=== PATIENT | female | born 1995 | race Caucasian/White ===

== ENCOUNTER 2020-03-17 20:18 | Emergency (ER) | payer MEDICAID, SELFPAY ==
[2020-03-17 23:32] VITALS: BP 96/58; PULSE 84; RESP 18; TEMP 36.9; O2SAT 98; BMI 19.3
--- NOTE | 2020-03-17 23:44 | ED.WEAKNESS ---
HPI - Weakness General Chief complaint: Weakness Stated complaint: GENERAL PAIN Time Seen by Provider: 03/17/20 23:28 Source: patient Mode of arrival: ambulatory Limitations: no limitations History of Present Illness HPI Narrative: patient with history of asthma which is usually mild for last 1 week patient been feeling short of breath occasional cough weakness body aches nausea diffuse abdominal pain feels exhausted denies any contact with AMANDA watersly Complaint: generalized weakness Related Data Allergies Allergy/AdvReac Type Severity Reaction Status Date / Time peanut [PEANUT] Allergy Severe ANAPHYLAXIS Verified 03/17/20 23:31 Peanut (Diagnostic) Allergy Unknown anaphylactic Uncoded 02/18/17 00:00 shock Review of Systems Review of Systems: REVIEW OF SYSTEMS: Pertinent positives and negatives are stated above in the history. GEN: no fevers, chills, fatigue++ HEENT: no nasal congestion, sore throat, ear pain NEURO: no headache, dizziness, focal weakness PULM: no cough, CV: no chest pain, palpitations, LE edema ABD: no abdominal pain, nausea, vomiting, diarrhea : no dysuria, urgency, frequency SKIN: no rash ROS otherwise negative x 10 PMFSH Past Medical History Medical History Asthma Social History Social History Alcohol intake: never Smoked in Last 30 Days: No Use of substances other than those prescribed or required for medical reasons: No Advance Directives: No Advance Directives Information Provided: No Physical Exam Vital Signs: Vital Signs: Vital Signs Temp Pulse Resp BP Pulse Ox 03/18/20 01:23 98.2 F 92 18 98/47 L 99 03/17/20 23:32 98.5 F 84 18 96/58 L 98 Body Mass Index 19.3 VITAL SIGNS: Reviewed. positive orthostatics with dizziness on standing GENERAL: Well developed, well nourished, in no acute distress. HEAD: Normocephalic/atraumatic, EYES: PERRLA No pallor/icterus noted EARS: Ext canals without abnormality NOSE: Nares patent bilateral OROPHARYNX: Oral mucosa moist no oral lesions NECK: Supple, no adenopathy LUNGS: Normal breath sounds. No adventitious sounds or accessory muscle use CARDIOVASCULAR: Regular rate and rhythm without noted murmurs, no JVD or lower extremity edema. ABDOMEN: Soft, non-tender, non-distended with bowel sounds. No rigidity. No guarding. No palpable masses or hernias noted MUSCULOSKELETAL: No tenderness, deformities, EXTREMITIES: No cyanosis or edema. SKIN: no rashes, ulcerations, jaundice, pallor, or petechiae NEUROLOGIC: Alert and oriented x 3. Strength and sensation to light touch were grossly intact Course Reevaluation(s) Reevaluation #1: patient feel very anxious with history of depression anxiety still complaining of complaints whole body aches so far workup is negative will give her Ativan IV 1 mg for anxiety and stress patient will be getting 2 L of normal saline. Time: 00:50 Reevaluation #2: COVID test is negative patient denies any cough already received 2 L of IV fluids feeling much better will discharge her home Time: 02:01 MDM - Weakness Lab Data Result diagrams: 03/17/20 23:56 03/17/20 23:56 Labs: Lab Results 03/17/20 03/17/20 03/17/20 Range/Units 23:56 23:56 23:56 WBC 8.2 (4.8-10.8) X10*3/uL RBC 4.08 L (4.20-5.50) X10*6/uL Hgb 12.8 (12.0-16.0) g/dl Hct 38.2 (37-47) % MCV 93.6 (80-98) fL MCH 31.4 (27.0-33.0) pg MCHC 33.5 (31.0-35.0) g/dl RDW 12.5 (11.0-16.0) % Plt Count 298 (160-400) X10*3/uL MPV 9.4 (9.4-12.3) fL Immature Gran % (Auto) 0.2 (0.0-0.4) % Neut % (Auto) 64.9 (45-73) % Lymph % (Auto) 27.5 (20-40) % [place] % (Auto) 6.3 (2-11) % Eos % (Auto) 0.7 (0-4) % Baso % (Auto) 0.4 (0-2) % Lymph # (Auto) 2.3 (1.2-4.9) X10*3/uL [place] # (Auto) 0.5 (0.1-1.2) X10*3/uL Eos # (Auto) 0.1 (0.0-0.4) X10*3/uL Baso # (Auto) 0.0 (0.0-0.2) X10*3/uL Abs Immat Gran (auto) 0.02 (0.00-0.03) X10*3/uL Absolute Neuts (auto) 5.3 (2.0-8.3) X10*3/uL Absolute Nucleated RBC 0.000 (0.0-0.012) X10*3/uL Nucleated RBC % (auto) 0.0 (0.0-0.2) /100WBC Sodium 138 (135-145) mmol/L Potassium 3.7 (3.3-5.1) mmol/l Chloride 108 (96-108) mmol/L Carbon Dioxide 22 (22-29) mmol/L Anion Gap 12 (12-20) BUN 13 (9-16) mg/dL Creatinine 0.83 (0.5-1.4) mg/dL Estim Creat Clear Calc 89.8 Estimated GFR > 60 Random Glucose 111 (60-115) mg/dL Calcium 8.2 L (8.4-10.2) mg/dL Total Bilirubin 0.7 (0.0-1.0) mg/dL Direct Bilirubin 0.3 (0.0-0.5) mg/dL AST 13 (5-31) U/L ALT 8 (0-31) U/L Alkaline Phosphatase 61 (39-117) U/L Troponin I High Sens (<3.5-17.0) ng/L Total Protein 6.9 (6.5-8.0) g/dL Albumin 4.3 (3.5-5.0) g/dL Lipase 19 (8-78) U/L Urine Color Urine Appearance Urine pH (5.0-8.0) Ur Specific [place] (1.005-1.025) Urine Protein (NEG-TRACE) MG/DL Urine Glucose (UA) (NEG) MG/DL Urine Ketones (NEG) MG/DL Urine Blood (NEG) Urine Nitrite (NEG) Ur Leukocyte Esterase (NEG) Urine RBC (0) /HPF Urine WBC (0-4) /HPF Ur Squamous Epith Cells /LPF Uric Acid Crystals /LPF Urine Bacteria /LPF Urine Mucus /LPF Urine Test NEGATIVE (NEGATIVE) Coronavirus (PCR) (Negative) 03/17/20 03/18/20 03/18/20 Range/Units 23:56 00:05 00:05 WBC (4.8-10.8) X10*3/uL RBC (4.20-5.50) X10*6/uL Hgb (12.0-16.0) g/dl Hct (37-47) % MCV (80-98) fL MCH (27.0-33.0) pg MCHC (31.0-35.0) g/dl RDW (11.0-16.0) % Plt Count (160-400) X10*3/uL MPV (9.4-12.3) fL Immature Gran % (Auto) (0.0-0.4) % Neut % (Auto) (45-73) % Lymph % (Auto) (20-40) % [place] % (Auto) (2-11) % Eos % (Auto) (0-4) % Baso % (Auto) (0-2) % Lymph # (Auto) (1.2-4.9) X10*3/uL [place] # (Auto) (0.1-1.2) X10*3/uL Eos # (Auto) (0.0-0.4) X10*3/uL Baso # (Auto) (0.0-0.2) X10*3/uL Abs Immat Gran (auto) (0.00-0.03) X10*3/uL Absolute Neuts (auto) (2.0-8.3) X10*3/uL Absolute Nucleated RBC (0.0-0.012) X10*3/uL Nucleated RBC % (auto) (0.0-0.2) /100WBC Sodium (135-145) mmol/L Potassium (3.3-5.1) mmol/l Chloride (96-108) mmol/L Carbon Dioxide (22-29) mmol/L Anion Gap (12-20) BUN (9-16) mg/dL Creatinine (0.5-1.4) mg/dL Estim Creat Clear Calc Estimated GFR Random Glucose (60-115) mg/dL Calcium (8.4-10.2) mg/dL Total Bilirubin (0.0-1.0) mg/dL Direct Bilirubin (0.0-0.5) mg/dL AST (5-31) U/L ALT (0-31) U/L Alkaline Phosphatase (39-117) U/L Troponin I High Sens < 3.5 (<3.5-17.0) ng/L Total Protein (6.5-8.0) g/dL Albumin (3.5-5.0) g/dL Lipase (8-78) U/L Urine Color YELLOW Urine Appearance CLEAR Urine pH 6.0 (5.0-8.0) Ur Specific [place] 1.025 (1.005-1.025) Urine Protein NEG (NEG-TRACE) MG/DL Urine Glucose (UA) NEG (NEG) MG/DL Urine Ketones NEG (NEG) MG/DL Urine Blood TRACE (NEG) Urine Nitrite NEG (NEG) Ur Leukocyte Esterase NEG (NEG) Urine RBC 1-4 (0) /HPF Urine WBC 0 (0-4) /HPF Ur Squamous Epith Cells TRACE /LPF Uric Acid Crystals TRACE /LPF Urine Bacteria TRACE /LPF Urine Mucus 3+ /LPF Urine Test (NEGATIVE) Coronavirus (PCR) NEGATIVE (Negative) ECG Data Attestation: I personally reviewed and interpreted this ECG as follows: Interpretation: normal sinus rhythm with heart rate 75 normal intervals normal axis no acute ST T wave changes impression normal EKG Discharge Plan Discharge Clinical Impression: Weakness Patient Disposition: Home, Self-Care Instructions: Weakness (ED) Additional Instructions: drink plenty of fluids and follow-up with primary care doctor, continue medication for anxiety and depression
[2020-03-17] MEDS: 0.9 % Sodium Chloride 1,000 ML 999 ML IVCONT (23:51)
[2020-03-17] MEDS: ondansetron HCL 4 MG/2 ML VIAL IVPUSH (23:51)
--- NOTE | 2020-03-17 23:51 | XR_ITS ---
EXAMINATION: XR CHEST CLINICAL INFORMATION: Shortness of breath COMPARISON: None TECHNIQUE: Frontal view of the chest was obtained. FINDINGS: The lungs are well expanded. Hazy opacity at the right lung base. No pleural effusion or pneumothorax. The cardiomediastinal silhouette is within normal limits. No acute osseous abnormality. XR/XR chest 1V IMPRESSION: Hazy right basilar opacity which could represent atelectasis or pneumonia.
--- NOTE | 2020-03-17 23:52 | ECG_ITS ---
Test Reason : CHEST PAIN Blood Pressure : / mmHG Vent. Rate : 075 BPM Atrial Rate : 075 BPM P-R Int : 136 ms QRS Dur : 080 ms QT Int : 404 ms P-R-T Axes : 054 079 061 degrees QTc Int : 451 ms Normal sinus rhythm with sinus arrhythmia Normal ECG When compared with ECG of 12-DEC-2012 20:11, No significant change was found Referred By: Brayden Dow Electronically Signed By:XENA HERNÁNDEZ MD
[2020-03-18 00:05] LABS: Basophils Percent Auto 0.4 % (0-2); Eosinophils Absolute Auto 0.1 X10*3/uL (0.0-0.4); Eosinophils Percent Auto 0.7 % (0-4); Hematocrit 38.2 % (37-47); Hemoglobin 12.8 g/dl (12.0-16.0); Imm Gran Abs Auto 0.02 X10*3/uL (0.00-0.03); Imm Gran Pct Auto 0.2 % (0.0-0.4); Lymphocytes Absolute Auto 2.3 X10*3/uL (1.2-4.9); Lymphocytes Percent Auto 27.5 % (20-40); MANUAL DIFF FLAG NO; Mean Corpuscular HGB Conc 33.5 g/dl (31.0-35.0); Mean Corpuscular Hemoglobin 31.4 pg (27.0-33.0); Mean Corpuscular Volume 93.6 fL (80-98); Mean Platelet Volume 9.4 fL (9.4-12.3); Monocytes Absolute Auto 0.5 X10*3/uL (0.1-1.2); Monocytes Percent Auto 6.3 % (2-11); Neutrophils Absolute Auto 5.3 X10*3/uL (2.0-8.3); Neutrophils Percent Auto 64.9 % (45-73); Platelet Count 298 X10*3/uL (160-400); Red Blood Count 4.08 X10*6/uL (4.20-5.50); Red Cell Distribution Width 12.5 % (11.0-16.0); White Blood Count 8.2 X10*3/uL (4.8-10.8)
[2020-03-18 00:12] LABS: Glucose Urine UA NEG (NEG); Leukocyte Esterase Urine NEG (NEG); Nitrite Urine NEG (NEG); Specific Gravity - Urine 1.025 (1.005-1.025); Urine Blood TRACE (NEG); Urine Ketones NEG (NEG); Urine Protein NEG (NEG-TRACE)
[2020-03-18 00:17] LABS: Appearance Urine CLEAR; Color Urine YELLOW
[2020-03-18 00:27] LABS: Alanine Aminotransferase 8 U/L (0-31); Albumin Level 4.3 g/dL (3.5-5.0); Alkaline Phosphatase 61 U/L (39-117); Anion Gap 12 (12-20); Aspartate Amino Transferase 13 U/L (5-31); Bilirubin Direct 0.3 mg/dL (0.0-0.5); Bilirubin Total 0.7 mg/dL (0.0-1.0); Blood Urea Nitrogen 13 mg/dL (9-16); Calcium 8.2 mg/dL (8.4-10.2); Carbon Dioxide 22 mmol/L (22-29); Chloride 108 mmol/L (96-108); Creatinine Clr Calc Pharmacy 89.8; Estimated Glomerular Filt Rate > 60; Glucose Random 111 mg/dL (60-115); Lipase 19 U/L (8-78); Potassium 3.7 mmol/l (3.3-5.1); Sodium 138 mmol/L (135-145); Total Protein 6.9 g/dL (6.5-8.0)
--- NOTE | 2020-03-18 00:41 | PC.NURSE ---
pt arrives morfin x 3 with equal and non labored rr. pt skin wpd. appears pale. pt speaking in clear and full sentences. pt states x 1 week worsening fatigue, weakness, nausea and chest pain. pt lined and labbed. ortho positive, urine sent and collected. 1 l ns hung, chest x ray complete. vitals wnl, afebrile. rapid covid done.
[2020-03-18 00:43] LABS: Troponin-I High Sensitivity < 3.5 ng/L (<3.5-17.0)
--- NOTE | 2020-03-18 00:49 | PC.NURSE ---
pt very anxious, requesting something for anxiety at this time. md aware
[2020-03-18] MEDS: LORazepam 2 MG/ML VIAL 1 MG IVPUSH (00:53)
[2020-03-18] MEDS: 0.9 % Sodium Chloride 1,000 ML 999 ML IVCONT (00:53)
--- NOTE | 2020-03-18 01:04 | PC.NURSE ---
pt states that although she is feeling weak and lethargic she is also homeless. pt medicated with ativan. will wait for covid results then re evaluate. pt in nad at this time.
[2020-03-18 01:21] LABS: Bacteria Urine TRACE /LPF; Mucus Urine 3+ /LPF; Squamous Epithelial Cell Urine TRACE /LPF; Uric Acid Crystals Urine TRACE /LPF; WBC Urine 0 /HPF (0-4)
[2020-03-18 01:22] LABS: UPreg QC Valid YES; Urine Pregnancy NEGATIVE (NEGATIVE)
[2020-03-18 01:23] VITALS: BP 98/47; PULSE 92; RESP 18; TEMP 36.8; O2SAT 99
--- NOTE | 2020-03-18 01:24 | PC.NURSE ---
given sandiwch and drink per request
[2020-03-18 01:50] LABS: SARS COV2 PCR INHOUSE NEGATIVE (Negative)
[2020-03-18 02:08] LABS: D Dimer < 200 NG/ML
[2020-03-18] MEDS: Ketorolac Tromethamine 30 MG/ML VIAL IVPUSH (02:30)
[2020-03-18 03:57] VITALS: RESP 18
--- NOTE | 2020-03-18 06:18 | PC.NURSE ---
this rn went into patients room after we allowed her to sleep through the night due to her being homeless. pt was given information for homeless shelters, food to go. told her that she is more than welcome to use the phone in the waiting room gave her a transportation pass for shuttle and told her she would need to go to main entrance. pt then started being rude to this rn because i would not let her accompany a bed any longer. security called to bedside. pt still refusing to leave.
--- NOTE | 2020-03-18 06:36 | PC.NURSE ---
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
--- NOTE | 2020-03-18 10:01 | MHC.CM.ED ---
Received notification from Fiorella in registration, that patient is requesting case management to call [facility] to get her a bed. Attempted to call Komal at [facility]. Left a message requesting a return telephone call. Continue to monitor for d/c needs.
== END 2020-03-18 06:37 | disposition home or self-care (01) ==
PROVIDERS: Emergency Provider Internal Medicine; PCP Internal Medicine
DX: J45.909 Unspecified asthma, uncomplicated (principal); R05 Cough; R10.9 Unspecified abdominal pain; R53.1 Weakness; Z11.59 Encounter for screening for other viral diseases
CPT/HCPCS: 36415; 71045; 80048; 80076; 81001; 81025; 83690; 84484; 85025; 85379; 93005; 96361; 96374; 96375; 99284; J1885; J2060; J2405; U0003

== ENCOUNTER 2020-03-29 17:54 | Emergency (ER) | payer MEDICAID, SELFPAY ==
--- NOTE | 2020-03-29 | ECG_ITS ---
Test Reason : CP Blood Pressure : / mmHG Vent. Rate : 087 BPM Atrial Rate : 087 BPM P-R Int : 138 ms QRS Dur : 072 ms QT Int : 374 ms P-R-T Axes : 064 081 065 degrees QTc Int : 450 ms Normal sinus rhythm with sinus arrhythmia Normal ECG No significant changes seen Referred By: Generic ED Physician Electronically Signed By:XENA HERNÁNDEZ MD
[2020-03-29 19:07] VITALS: BP 99/57; PULSE 74; RESP 16; TEMP 36.6; O2SAT 98; BMI 20.1
--- NOTE | 2020-03-29 19:58 | XR_ITS ---
EXAMINATION: XR CHEST CLINICAL INFORMATION: Shortness of breath COMPARISON: None TECHNIQUE: 2 views of the chest were obtained. FINDINGS: The heart and pulmonary vessels appear normal. At the left lung base, there is some minimal streaky density seen with some minimal obscuration left hemidiaphragm new when compared to the prior study. The previously seen hazy opacity at the right lung base has cleared in the interim. XR/XR chest 2V IMPRESSION: Clearing of right basilar atelectasis with question of new tiny area of opacity at the left lung base.
[2020-03-29 20:00] VITALS: BP 98/53; PULSE 60; PULSE 63; RESP 18; TEMP 36.9; O2SAT 99
--- NOTE | 2020-03-29 20:00 | ED_ITS ---
HPI - General Adult General Chief complaint: General Medical Stated complaint: sob Time Seen by Provider: 03/29/20 19:58 Source: patient Mode of arrival: ambulatory Limitations: no limitations History of Present Illness HPI narrative: Generalized weakness, chest tightness, coughing, patient had a recent history of pneumonia just finish 5 days course of Z-Caleb, patient feels like she is still having the pneumonia. Patient has been self isolated and quarantine declined risk of COVID infection. Patient was seen on 03/17 and was diagnosed with pneumonia, patient was negative for COVID Related Data Home Medications Medication Instructions Recorded Confirmed albuterol 90 mcg INHALATION Q4H PRN 03/28/20 03/29/20 fluticasone propion-salmeterol 1 inh INHALATION BID 03/28/20 03/28/20 [Wixela Inhub] hydroxyzine HCl 25 mg PO TID PRN 03/28/20 03/28/20 montelukast [Singulair] 10 mg PO DAILY 03/28/20 03/28/20 sertraline 100 mg PO DAILY 03/28/20 03/28/20 Allergies Allergy/AdvReac Type Severity Reaction Status Date / Time peanut [PEANUT] Allergy Severe ANAPHYLAXIS Verified 03/17/20 23:31 Penicillins Allergy Hives Verified 03/29/20 19:14 Peanut (Diagnostic) Allergy Unknown anaphylactic Uncoded 02/18/17 00:00 shock Review of Systems Review of Systems: All other systems are reviewed and are negative Constitutional: Reports as per HPI and Reports no additional constitutional complaints Eyes: Reports as per HPI and Reports no additional eye complaints Reports system reviewed and no additional complaints, except as documented Cardiovascular: Reports as per HPI and Reports no additional cardiovascular complaints Respiratory: Reports as per HPI and Reports no additional respiratory complaints Gastrointestinal: Reports as per HPI and Reports no additional gastrointestinal complaints Genitourinary: Reports no additional female genitourinary complaints Musculoskeletal: Reports no additional musculoskeletal complaints Skin/Breast: Reports system reviewed and no additional complaints, except as docu Psychiatric: Reports no additional psychiatric complaints Endocrine: Reports no additional endocrine complaints Hematologic/Lymphatic: Reports no additional hematologic/lymphatic complaints Allergic/Immunologic: Reports no additional allergic/immunologic complaints Reports system reviewed and no additional complaints, except as documented and Reports Abnormal speech present [facility] Past Medical History Medical History Asthma Pneumonia Social History Social History Household Members: Family and Children Alcohol intake: never Smoking Status: Unknown if ever smoked Smoked in Last 30 Days: No Use of substances other than those prescribed or required for medical reasons: Yes Substance Use Type: Marijuana Substance Use Frequency: Daily Last Used Substance: Hours (ago) Advance Directives: No Advance Directives Information Provided: Yes Physical Exam Vital Signs: Vital Signs: Last Vital Signs Temp 98.5 F 03/29/20 20:00 Pulse 60 03/29/20 20:00 Resp 18 03/29/20 20:00 BP 98/53 L 03/29/20 20:00 Pulse Ox 99 03/29/20 20:00 Body Mass Index 20.1 Vital signs have been reviewed as normal and appeared to be correct. Blood pr essure normal. Heart rate normal. Respiration rate normal. Temperature normal. Oxygen saturation normal. Appearance: Alert. Oriented X3. No acute distress. Head: Normal external exam. Normocephalic. Atraumatic. No Tripathi signs noted. No raccoon eyes noted Eyes: PERRLA. EOMI. Conjunctiva and sclera normal. Eyelids normal. ENT: EAC normal. TM's Normal. Pharynx normal. Uvula midline. Moist mucous membranes. No trismus noted. No drooling noted. No muffled voice noted. Neck: Normal inspection. Neck supple. FROM. No adenopathy. Thyroid Normal. No meningeal signs. No neck mass noted. CVS: Normal heart rate and rhythm. Heart sound normal. No murmurs noted. Pulses normal throughout. Respiratory: No respiratory distress. Painless inspiration. Breath sounds nor mal. No wheezes/rales/rhonchi noted. Chest nontender. No accessory muscle usage noted or decreased air movement noted. Abdomen: Soft and nontender. Bowel sounds normal in all 4 quadrants. No distent ion noted. No organomegaly noted. No visible injury noted. Back: No CVA tenderness. Full range of motion noted. Skin: Skin warm and dry. Normal skin color. Normal skin turgor. No rashes/lesions/lacerations noted. Extremities: No lower extremity edema. Extremities exhibit normal range of mot ion. Extremities nontender. Neuro: Oriented X 3. No motor deficit. No sensory deficit. Reflexes normal. Medical Decision Making MDM Narrative Medical decision making narrative: Assessment and plan. 24-year-old female presented with similar symptoms that she presented 10 days ago, patient appears anxious and most of her symptoms related to her anxiety, exam fairly normal, patient had chest x-ray that showed cleared of the subtle finding on the previous x-ray, patient been in the emergency room for few hours, stable vital sign, patient also have unremarkable labs. Patient was instructed to follow-up with her PCP. Patient is still concerned about her symptoms, patient appear very disappointed I attempt all effort to reassure the patient patient still unhappy. Will not start antibiotic if not indicated. Patient is showing any acute psychological problem, patient appeared very organized no hallucination, patient was asked if any SI or HI she denied. Lab Data Lab results reviewed: Yes I reviewed the patient's lab results. Result diagrams: 03/29/20 20:10 03/29/20 20:10 Labs: Lab Results 03/29/20 03/29/20 03/29/20 Range/Units 20:10 20:10 20:42 WBC 8.4 (4.8-10.8) X10*3/uL RBC 3.84 L (4.20-5.50) X10*6/uL Hgb 11.9 L (12.0-16.0) g/dl Hct 36.2 L (37-47) % MCV 94.3 (80-98) fL MCH 31.0 (27.0-33.0) pg MCHC 32.9 (31.0-35.0) g/dl RDW 12.6 (11.0-16.0) % Plt Count 287 (160-400) X10*3/uL MPV 9.5 (9.4-12.3) fL Immature Gran % (Auto) 0.4 (0.0-0.4) % Neut % (Auto) 59.5 (45-73) % Lymph % (Auto) 31.5 (20-40) % Dougherty % (Auto) 6.3 (2-11) % Eos % (Auto) 1.8 (0-4) % Baso % (Auto) 0.5 (0-2) % Lymph # (Auto) 2.6 (1.2-4.9) X10*3/uL Dougherty # (Auto) 0.5 (0.1-1.2) X10*3/uL Eos # (Auto) 0.2 (0.0-0.4) X10*3/uL Baso # (Auto) 0.0 (0.0-0.2) X10*3/uL Abs Immat Gran (auto) 0.03 (0.00-0.03) X10*3/uL Absolute Neuts (auto) 5.0 (2.0-8.3) X10*3/uL Absolute Nucleated RBC 0.000 (0.0-0.012) X10*3/uL Nucleated RBC % (auto) 0.0 (0.0-0.2) /100WBC Sodium 139 (135-145) mmol/L Potassium 4.1 (3.3-5.1) mmol/l Chloride 109 H (96-108) mmol/L Carbon Dioxide 21 L (22-29) mmol/L Anion Gap 13 (12-20) BUN 22 H D (9-16) mg/dL Creatinine 0.75 (0.5-1.4) mg/dL Estim Creat Clear Calc 103.4 Estimated GFR > 60 Random Glucose 89 (60-115) mg/dL Calcium 9.0 D (8.4-10.2) mg/dL Urine Color YELLOW Urine Appearance CLEAR Urine pH 6.0 (5.0-8.0) Ur Specific Rosie >= 1.030 H (1.005-1.025) Urine Protein NEG (NEG-TRACE) MG/DL Urine Glucose (UA) NEG (NEG) MG/DL Urine Ketones NEG (NEG) MG/DL Urine Blood NEG (NEG) Urine Nitrite NEG (NEG) Ur Leukocyte Esterase NEG (NEG) Urine Test NEGATIVE (NEGATIVE) Imaging Data Chest x-ray: Radiologist's impression: Clearing of right basilar atelectasis with question of new tiny area of opacity at the left lung base Discharge Plan Discharge Clinical Impression: Encounter for medical screening examination, Normal exam Patient Disposition: Home, Self-Care Instructions: Normal Exam (ED) Prescriptions: No Action fluticasone propion-salmeterol [Wixela Inhub] 250-50 mcg/dose Blister With Device 1 inh INHALATION BID RF: 0 sertraline 100 mg Tablet 100 mg PO DAILY RF: 0 montelukast [Singulair] 10 mg Tablet 10 mg PO DAILY RF: 0 hydroxyzine HCl 25 mg Tablet 25 mg PO TID PRN (Reason: Anxiety) RF: 0 albuterol 90 mcg/actuation Aerosol 90 mcg INHALATION Q4H PRN (Reason: Shortness Of Breath) RF: 0 Referrals: Sandy Handley MD [Primary Care Provider] - 2 days
[2020-03-29 20:15] LABS: MANUAL DIFF FLAG NO
[2020-03-29 20:20] LABS: Basophils Percent Auto 0.5 % (0-2); Eosinophils Absolute Auto 0.2 X10*3/uL (0.0-0.4); Eosinophils Percent Auto 1.8 % (0-4); Hematocrit 36.2 % (37-47); Hemoglobin 11.9 g/dl (12.0-16.0); Imm Gran Abs Auto 0.03 X10*3/uL (0.00-0.03); Imm Gran Pct Auto 0.4 % (0.0-0.4); Lymphocytes Absolute Auto 2.6 X10*3/uL (1.2-4.9); Lymphocytes Percent Auto 31.5 % (20-40); Mean Corpuscular HGB Conc 32.9 g/dl (31.0-35.0); Mean Corpuscular Volume 94.3 fL (80-98); Mean Platelet Volume 9.5 fL (9.4-12.3); Monocytes Absolute Auto 0.5 X10*3/uL (0.1-1.2); Monocytes Percent Auto 6.3 % (2-11); Neutrophils Percent Auto 59.5 % (45-73); Platelet Count 287 X10*3/uL (160-400); Red Blood Count 3.84 X10*6/uL (4.20-5.50); Red Cell Distribution Width 12.6 % (11.0-16.0); White Blood Count 8.4 X10*3/uL (4.8-10.8)
[2020-03-29 20:42] LABS: Anion Gap 13 (12-20); Blood Urea Nitrogen 22 mg/dL (9-16); Carbon Dioxide 21 mmol/L (22-29); Chloride 109 mmol/L (96-108); Creatinine Clr Calc Pharmacy 103.4; Estimated Glomerular Filt Rate > 60; Glucose Random 89 mg/dL (60-115); Potassium 4.1 mmol/l (3.3-5.1); Sodium 139 mmol/L (135-145)
[2020-03-29 21:05] LABS: Glucose Urine UA NEG (NEG); Leukocyte Esterase Urine NEG (NEG); Nitrite Urine NEG (NEG); Specific Gravity - Urine >= 1.030 (1.005-1.025); Urine Blood NEG (NEG); Urine Ketones NEG (NEG); Urine Protein NEG (NEG-TRACE)
[2020-03-29 21:08] LABS: Appearance Urine CLEAR; Color Urine YELLOW
[2020-03-29 21:11] LABS: UPreg QC Valid YES; Urine Pregnancy NEGATIVE (NEGATIVE)
--- NOTE | 2020-03-29 22:24 | PC.NURSE ---
pt refusing to leave although she is discharged and all vitals wnl, all imaging and labs wnl. security called
--- NOTE | 2020-03-29 22:28 | PC.NURSE ---
Patient refusing to leave. This RN, , and Anna (charge entry specialist) have attempted to discharge patient peacefully, however patient continues to refuse to leave. ANGELINE Espinoza also entered room to attempt to de-escalate patient. Pt states I came here for a fucking reason, and I'm leaving with more questions, and I'm clearly sick. Discussed imaging results, within normal range. Escorted out of ED with security.
== END 2020-03-29 22:33 | disposition home or self-care (01) ==
PROVIDERS: Emergency Provider Emergency Medicine; PCP Internal Medicine
DX: R05 Cough (principal); R53.1 Weakness; Z20.828 Contact with and (suspected) exposure to other viral communicable diseases; Z79.899 Other long term (current) drug therapy
CPT/HCPCS: 36415; 71046; 80048; 81003; 81025; 85025; 93005; 99283; 99284

== ENCOUNTER 2020-04-01 08:00 | Outpatient (RCR) | payer OTHER, SELFPAY ==
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
--- NOTE | 2020-03-28 12:54 | PC.NURSE ---
Unable to get a hold of patient via phone to complete nursing assessment. Left message with patient to call me back.
--- NOTE | 2020-03-28 14:41 | PC.NURSE ---
Case opened in treatment team
[2020-03-29 10:52] VITALS: BMI 19.3
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
--- NOTE | 2020-03-29 14:32 | PC.NURSE ---
I attempted to call the client to check in and review treatment plan. I left a message that I would be calling back. I attempted at a later time still no answer.
--- NOTE | 2020-03-30 13:22 | PC.NURSE ---
Spoke to patient who was upset as she stated that no one let her into the morning meeting or the psychotherapy group. All staff was consulted and stated that Elyse was not at the morning meeting and no one saw her trying to get in the group. Staff did see her trying to get into the 0930 meeting. Spoke to patient about the importance of attending the morning meeting and to call staff if she is going to be late or is unable to get in. Patient plans on attending at 0900 tomorrow and will call staff if she is unable to get in. Of note patient has been having issues with her WIFI as staff spoke to her a few times and had to call her back as she phone would cut out. Patient also worried that she may have a tampon in that will not come out as she does not remember if she took it out or not. Stated she went to the ER last night but they did not do anything about that instead took a chest x ray. Stated they told her to contact her PCP. Pt advised to call her PCP's office and speak to the nurse about this to get an appointment. Pt plans on doing this after our phone conversation.
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
--- NOTE | 2020-04-01 14:22 | PC.NURSE ---
Patient stated she wanted blood work done specifically STD testing and HIV. Concerned she may have an STD. C/o pelvic pain. Pt requested lab orders be sent to [facility] [address] [place] [address]. Pt also waiting for her PCP's office to set up a PT-1, as she does not have transportation until much later in the day during the week, so she can f/u with her PCP. Carly Archer APRN is aware.
--- NOTE | 2020-04-01 14:54 | PC.NURSE ---
I called [facility] to make a referral for a CSP worker. Evelyn took the information and said she will call back with an intake appointment time.
--- NOTE | 2020-04-01 15:09 | PC.NURSE ---
Evelyn from [facility] called. Elyse has an appointment for an intake for a CSP worker on Apr 12 at ! pm with Mallory Flores. Mallory will call her. Once she is done with the intake a CSP worker will be assigned.
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
== END 2020-04-01 23:55 | disposition home or self-care (01) ==
LOC: HO.PHPA 08:00
PROVIDERS: Visit Provider Psychiatry & Neurology Psychiatry
DX: F32.9 Major depressive disorder, single episode, unspecified (principal); F43.10 Post-traumatic stress disorder, unspecified
CPT/HCPCS: 90792; 90853